=== PATIENT | female | born 2000 | race Caucasian/White ===

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

== ENCOUNTER 2019-04-14 13:59 | Emergency (ER) | payer OTHER ==
[2019-04-14] MEDS ORDERED: SODIUM CHLORIDE 0.9% 1,000 ML IV ONE (15:41)
[2019-04-14] MEDS ORDERED: LACTATED RINGERS 1,000 ML IV ONE (15:41)
[2019-04-14] MEDS ORDERED: ONDANSETRON 4 MG/2 ML VIAL IVP STA (15:41)
[2019-04-14] MEDS ORDERED: KETOROLAC 30 MG/ML VIAL IVP STA (15:41)
[2019-04-14] MEDS ORDERED: LOPERAMIDE 2 MG CAPSULE PO STA (15:41)
--- NOTE | 2019-04-14 15:43 | ED Physician Documentation ---
PD HPI ABD PAIN - Stated complaint Stated Complaint: FLU LIKE SX - Chief complaint Chief Complaint: Abd Pain - History obtained from History obtained from: Patient, Family - History of Present Illness Timing - onset: Today (She became acutely ill this morning with fever, body aches, vomiting and diarrhea. Her sister was sick yesterday with a stomach bug, unclear if she had fevers. No recent travel of significance.) Review of Systems Constitutional: reports: Fever, Chills Nose: denies: Rhinorrhea / runny nose Throat: denies: Sore throat GI: reports: Nausea, Vomiting, Diarrhea. denies: Abdominal Pain PD PAST MEDICAL HISTORY - Past Surgical History Past Surgical History: Yes HEENT: Tonsil/Adenoidectomy - Present Medications Home Medications: Ambulatory Orders Medication Instructions Recorded Confirmed Ondansetron Odt [Zofran] 4 mg TL Q6H PRN #10 tablet 06/10/18 Ibuprofen [Motrin] 800 mg PO Q8H PRN #30 tablet 04/14/19 Loperamide [Imodium] 2 mg PO QID PRN #10 capsule 04/14/19 Ondansetron Odt [Zofran] 4 mg TL Q6H PRN #10 tablet 04/14/19 - Allergies Allergies/Adverse Reactions: Allergies Allergy/AdvReac Type Severity Reaction Status Date / Time No Known Drug Allergies Allergy Verified 04/14/19 14:08 - Social History Does the pt smoke?: No Smoking Status: Never smoker Does the pt drink ETOH?: No Does the pt have substance abuse?: No - Immunizations Immunizations are current?: Yes - POLST Patient has POLST: No PD ED PE NORMAL - Vitals Vital signs reviewed: Yes - General General: Alert and oriented X 3, No acute distress - HEENT HEENT: PERRL, Ears normal, Pharynx benign - Neck Neck: Supple, no meningeal sign, No bony TTP - Cardiac Cardiac: RRR, No murmur - Respiratory Respiratory: No respiratory distress, Clear bilaterally - Abdomen Abdomen: Soft, Non tender - Derm Derm: No rash - Neuro Neuro: Alert and oriented X 3, Normal speech Results - Vitals Vitals: Vital Signs - 24 hr 04/14/19 04/14/19 04/14/19 14:06 14:33 17:24 Temperature 36.8 C 38.2 C H 37.1 C Heart Rate 135 H 134 H 97 Respiratory 18 15 Rate Blood Pressure 125/59 L 112/65 O2 Saturation 97 98 100 04/14/19 04/14/19 17:57 18:48 Temperature Heart Rate 100 75 Respiratory 18 18 Rate Blood Pressure 107/65 114/68 O2 Saturation 100 100 Oxygen O2 Source Room air - Labs Labs: Laboratory Tests 04/14/19 04/14/19 04/14/19 14:34 15:50 16:30 Sodium 136 Potassium 4.3 Chloride 104 Carbon Dioxide 23 Anion Gap 9.0 BUN 18 Creatinine 0.7 Estimated GFR (MDRD) 108 Glucose 108 H Calcium 9.2 Total Bilirubin 1.1 H AST 17 ALT 12 Alkaline Phosphatase 36 L Total Protein 7.6 Albumin 4.4 Globulin 3.2 Albumin/Globulin Ratio 1.4 Lipase 24 Urine Color YELLOW Urine Clarity HAZY Urine pH 6.0 Ur Specific [place] >=1.030 H Urine Protein TRACE Urine Glucose (UA) NEGATIVE Urine Ketones 40 H Urine Occult Blood NEGATIVE Urine Nitrite NEGATIVE Urine Bilirubin SMALL H Urine Urobilinogen 1 (NORMAL) Ur Leukocyte Esterase TRACE H Urine RBC 0-5 Urine WBC 6-10 H Ur Squamous Epith Cells FEW Squamous Amorphous Sediment Marked Urine Bacteria Few Ur Microscopic Review INDICATED Urine Culture Comments INDICATED Urine HCG, Qual NEGATIVE Influenza A (Rapid) Negative Influenza B (Rapid) Negative PD MEDICAL DECISION MAKING - ED course ED course: 18-year-old presents with a flulike illness, there is an ongoing outbreak and I wonder if her negative flu swab is a false negative. Otherwise she presents with a viral syndrome with tachycardia and fever. Her tachycardia resolved after IV fluids and Toradol. As did her fever. Departure - Departure Disposition: 01 Home, Self Care Clinical Impression: Viral syndrome Condition: Good Instructions: ED Viral Syndrome Prescriptions: Ibuprofen [Motrin] 800 mg PO Q8H PRN #30 tablet PRN Reason: PAIN &/OR FEVER Loperamide [Imodium] 2 mg PO QID PRN #10 capsule PRN Reason: Diarrhea Ondansetron Odt [Zofran] 4 mg TL Q6H PRN #10 tablet PRN Reason: Nausea / Vomiting Comments: I suspect you will be much better within the next day or 2, return anytime if worse. Drink plenty of fluids. Forms: Activity restrictions Discharge Date/Time: 04/14/19 18:49
[2019-04-14 16:06] LABS: ALBUMIN 4.4 g/dL (3.2-5.5); ALBUMIN/GLOBULIN RATIO 1.4 (1.0-2.2); BILIRUBIN,TOTAL 1.1 mg/dL (0.2-1.0); CALCIUM 9.2 mg/dL (8.5-10.3); CREATININE 0.7 mg/dL (0.4-1.0); TOTAL PROTEIN 7.6 g/dL (6.7-8.2)
[2019-04-14 16:50] LABS: GLUCOSE, URINE (UA) NEGATIVE (NEGATIVE); KETONES,URINE (UA) 40 mg/dL (NEGATIVE); LEUKOCYTE ESTERASE, URINE TRACE (NEGATIVE); NITRITE,URINE NEGATIVE (NEGATIVE); OCCULT BLOOD,URINE NEGATIVE (NEGATIVE); PROTEIN,URINE TRACE mg/dL (NEGATIVE); UROBILINOGEN,URINE 1 (NORMAL) E.U./dL (NORMAL)
[2019-04-14 16:59] LABS: BILIRUBIN,URINE SMALL (NEGATIVE); CLARITY,URINE HAZY (CLEAR); HCG UR QUAL NEGATIVE; ICTOTEST,URINE POSITIVE
[2019-04-14 17:17] LABS: BACTERIA,URINE Few /HPF (None Seen); RBC,URINE 0-5 /HPF (0-5); SQUAMOUS EPITHELIAL CELL,UR FEW Squamous (<= Few)
[2019-04-14 17:18] LABS: AMORPHOUS SEDIMENT,UR Marked /LPF
[2019-04-14 18:49] VITALS: BP 114/68
== END 2019-04-14 18:49 | disposition home or self-care (01) ==
LOC: ED 13:59
DX: B34.9 Viral infection, unspecified (principal); R00.0 Tachycardia, unspecified
CPT/HCPCS: 36415; 80053; 81001; 81025; 83690; 87086; 87275; 87276; 96361; 96374; 99283; A9270; J7120; 81003

== ENCOUNTER 2020-09-01 08:00 | Outpatient (CLI) | payer OTHER ==
--- NOTE | 2020-09-01 13:54 | XRAY Report ---
PROCEDURE: Foot 3 View LT INDICATIONS: L FOOT PX TECHNIQUE: 3 views of the foot were acquired. COMPARISON: Ankle x-ray 08/04/2020 FINDINGS: Bones: No fractures or dislocations. No suspicious bony lesions. Soft tissues: No tibiotalar joint effusion. Achilles tendon appears normal. IMPRESSION: No visualized acute fracture or dislocation. However, occult injury cannot be excluded. Recommend felicia rt interval imaging follow-up in 7-10 days as clinically indicated for additional evaluation. Reviewed by: Karen Mayer MD on 09/01/2020 1:53 PM PDT Approved by: Karen Mayer MD on 09/01/2020 1:53 PM PDT Station ID: [id number]
== END 2020-09-01 23:59 | disposition home or self-care (01) ==
LOC: DI.N 08:00
PROVIDERS: ATTEND Orthopaedic Surgery
DX: M79.672 Pain in left foot (principal)